=== PATIENT | male | born 1950 | race Caucasian/White ===

== ENCOUNTER 2017-01-02 05:55 | Day surgery (SDC) | payer OTHER ==
[~2017-01-02 05:55] MED LIST: ASPIR-LOW81 MG PO; CELEXA40 MG PO; COUMADIN5 MG PO; KLOR-CON 1010 MEQ PO; LASIX40 MG PO; LEVOTHYROXINE125 MCG PO; METOPROLOL SUCC25 MG PO; NITROSTAT0.4 MG SL; ROSUVASTATIN CA40 MG; TOPROL XL50 MG PO
--- NOTE | 2017-01-02 07:51 | EKG ---
[facility] [address] [place], [place] [address] Signed Normal sinus rhythm Inferior infarct , age undetermined Abnormal ECG No previous ECGs available Confirmed by RUKHSANA HOWARD MD ([id number]) on 01/02/2017 7:51:05 AM Electronically Signed By: RUKHSANA HOWARD MD 01/02/17 0751 PATIENT NAME: POORNIMA PRIDE Electrocardiogram DATE OF : 46 PHYSICIAN: RUKHSANA HOWARD MD REPORT #: [id number] REPORT IS CONFIDENTIAL AND NOT TO BE RELEASED WITHOUT AUTHORIZATION
--- NOTE | 2017-01-02 09:53 | NUR ---
PT ALERT, ORIENTED AND SUPPORTED BY HIS . THEY DROVE OVER THIS MORNING FROM [facility]. PT KIND OF MATTER OF FACT IN THE WAY HE APPROACHED THINGS TODAY, BUT SEEMED TO WARM UP TO ME. HAD A GOOD VISIT, PT REQUESTED PRAYER. WILL FOLLOW NEEDED
--- NOTE | 2017-01-02 10:00 | NUR ---
01/02/17 1000 Keith Garner PT REMAINS DROWSY BUT NODS HEAD NO WHEN ASKED IF HE IS HAVING PAIN.
--- NOTE | 2017-01-02 11:36 | NUR ---
ASSIST TO BR LITTLE UNSTEADY ON FEET. VOIDED LARGE AMT. RETURNED TO BED. SAT 93% ON ROOM AIR.
--- NOTE | 2017-01-02 13:14 | NUR ---
1230 PT UP TO THE BATHROOM WITH STANSLEY ASST. TOLERATED WELL AND STEADY ON HIS FEET. 2ND VOID NOTED AND PT AMB BACK TO ROOM.
--- NOTE | 2017-03-13 09:33 | OR ---
[facility] [address], [place] [address] Signed DATE OF PROCEDURE: 01/02/17 PREOPERATIVE DIAGNOSIS Vocal cord and hard palate lesion. POSTOPERATIVE DIAGNOSIS Vocal cord and hard palate lesion. PROCEDURE Direct laryngoscopy, biopsy of left vocal cord lesion, and also biopsy of hard palate lesion. SURGEON: Mahin Ruth MD. ANESTHESIA: General, orotracheal. Facundo Tom CRNA. PREOPERATIVE HISTORY Mr. Pride is a 66-year-old man with hoarseness and vocal cord lesion, left anterior identified in the office. He also has a hard palate granular lesion near the posterior edge of his upper d enture. He is taken to the operating room for the above-mentioned procedures. OPERATIVE PROCEDURE AND FINDINGS After informed consent, the patient was taken to the operating room, placed in the supine position where general orotracheal anesthesia was induc ed. Patient and procedure were verified. Patient was repositioned and anterior commissure laryngoscope was used to visualize the hypopharynx and larynx. There was a lesion on the left anterior vocal cord, the whitish exophytic lesion not involving the ant e rior commissure was on the upper surface of the vocal cords approximately a quarter in length of the vocal cord. This lesion was raised, white, chalky-appearing. The lesion was removed in completely with upbiting cup forceps and sent to pathology in forma yaneli. Minimal bleeding, stopped afterwards. No other lesions in the larynx and hypopharynx. Scope was removed. The hard palate was visualized with a tongue depressor, elevating the tongue. Posterior portion of the hard palate had some granular reddish tissue exophytic measuring about a centimeter. This was biopsied with a large cup forceps sent to pathology in formalin for permanent section. Bleeding was minimal. Stopped afterwards. Patient was then awakened, extubated, and transported to recovery room in go od condition. No complications. BLOOD LOSS: Minimal. SPECIMENS: Electronically Signed By: MAHIN RUTH MD 03/13/17 0933 PATIENT NAME: JOSE ALFREDO PRIDEScotty EDDY OPERATIVE REPORT DATE OF : 46 PHYSICIAN: MAHIN RUTH MD REPORT #: [id number] REPORT IS CONFIDENTIAL AND NOT TO BE RELEASED WITHOUT AUTHORIZATION [address] [address] Signed Left vocal cord lesion. Hard palate lesion to pathology in formalin separately. COMPLICATIONS: No complications. DRAINS: No drains. Mahin Ruth MD GC/Joy /[id number] cc: AKI [place] DDS Electronically Signed By: MAHIN RUTH MD 03/13/1733 PATIENT NAME: POORNIMA PRIDE OPERATIVE REPORT DATE OF : 46 PHYSICIAN: MAHIN RUTH MD REPORT #: [id number] REPORT IS CONFIDENTIAL AND NOT TO BE RELEASED WITHOUT AUTHORIZATION
== END 2017-01-02 12:45 | disposition home or self-care (01) ==
LOC: DS 05:55 → OPS 05:55 → DS 08:45 → OPS 12:45
PROVIDERS: Otolaryngology
PROC: 0CBM8ZX Excision of Pharynx, Via Natural or Artificial Opening Endoscopic, Diagnostic (ICD-10-PCS; 2017-01-02)
PROC: 0CBV8ZZ Excision of Left Vocal Cord, Via Natural or Artificial Opening Endoscopic (ICD-10-PCS; principal; 2017-01-02 08:45)
DX: J38.3 Other diseases of vocal cords (principal); I10 Essential (primary) hypertension; E03.9 Hypothyroidism, unspecified; G47.33 Obstructive sleep apnea (adult) (pediatric); E78.00 Pure hypercholesterolemia, unspecified; Z95.2 Presence of prosthetic heart valve
CPT/HCPCS: 00320; 36415; 80048; 85610; 93005; 93010; J1100; J1885; J2250; J2405; J2704; J2765; J3010

== ENCOUNTER 2022-02-09 18:44 | Emergency (ER) | payer OTHER ==
[~2022-02-09] VITALS: Ht 177.8 cm; Wt 95.3 kg
== END 2022-02-09 20:56 | disposition home or self-care (01) ==
LOC: ED 18:44
DX: S06.9X1A Unspecified intracranial injury with loss of consciousness of 30 minutes or less, initial encounter (principal); S40.812A Abrasion of left upper arm, initial encounter; F17.200 Nicotine dependence, unspecified, uncomplicated; Z79.899 Other long term (current) drug therapy; W22.8XXA Striking against or struck by other objects, initial encounter
CPT/HCPCS: 36415; 70450; 72125; 80053; 82150; 82553; 83605; 83690; 85025; 85610; 86850; 86900; 86901; 99284-25; A9270; G0480